=== PATIENT | female | born 1995 | race Caucasian/White ===

== ENCOUNTER 2021-01-28 18:48 | Emergency (ER) | payer BC, SELFPAY ==
[2021-01-28] VITALS (7 sets, daily range): BP systolic 113–142; BP diastolic 49–88; PULSE 101–143; RESP 16–20; TEMP 36.7; O2SAT 99–100
--- NOTE | ~2021-01-28 | XR_ITS ---
EXAMINATION: XR chest 2V EXAM DATE: 01/28/2021 20:33 INDICATION: Cough, Asthma Attack Today, Hx Of cardiac Murmur, chest pain. TECHNIQUE: Frontal and lateral projections of the chest obtained and reviewed. Comparison is made to prior examination from 06/30/2012. FINDINGS: The lungs are clear. There are no pleural effusions. The cardiomediastinal silhouette is within normal limits. There is no pneumothorax suspected. The bones and soft tissues are unremarkab le. IMPRESSION: No acute cardiopulmonary findings. Reviewed, dictated and finalized at location A. [employer]
[2021-01-28] MEDS: methylPREDNISolone SOD SUCC 125 MG VIAL IM (20:09)
[2021-01-28] MEDS: IPRATROPIUM BR 0.02% INH SOLN 0.5 MG/2.5 ML VIAL INHALATION (20:12)
[2021-01-28] MEDS: ALBUTEROL SULFATE NEB 2.5 MG/0.5 ML INH 5 MG INHALATION (20:12)
--- NOTE | 2021-01-28 21:07 | ED.GENADULT ---
HPI - General Adult General Chief complaint: Asthma Stated complaint: Asthma Time Seen by Provider: 01/28/21 19:53 Source: patient Mode of arrival: ambulatory Limitations: no limitations History of Present Illness HPI narrative: Patient presents with chief complaint of asthma exacerbation last night and today. She reports she has had some postnasal drainage and cough. She reports her primary care started her on a Z-Matt however her symptoms persist. She denies any fever, nausea, vomiting, dizziness. She reported that she feels difficulty taking a deep breath as if there is restriction. Related Data Allergies Allergy/AdvReac Type Severity Reaction Status Date / Time No Known Allergies Allergy Verified 01/28/21 19:59 Review of Systems Review of Systems: CONSTITUTIONAL: Denies fever, chills, or sweats. EYES: Denies visual changes, redness, or discharge. ENT: Denies rhinorrhea, congestion, sore throat, or otalgia. CARDIOVASCULAR: Denies chest pain, palpitations, or edema. RESPIRATORY: Reports cough and asthma exacerbation GASTROINTESTINAL: Denies abdominal pain, nausea, vomiting, or diarrhea. GENITOURINARY: Denies dysuria or hematuria. SKIN: Denies rash or itching. MUSCULOSKELETAL: Denies back pain, joint pain, or myalgia. NEUROLOGIC: Denies headache, numbness, dizziness, or weakness. PSYCHIATRIC: Denies anxiety or depression. Exam Narrative: GENERAL: Well-appearing, well-nourished, and in no acute distress. HEAD: Normocephalic, atraumatic. EYES: PERRLA and EOMI. ENT: Nares clear, no rhinorrhea or epistaxis. Mucous membranes moist. Oropharynx without tonsillar hypertrophy exudate or other lesions. Bilateral TMs pearly ace nonbulging NECK: Supple. No adenopathy or masses. ROM intact CHEST: Clear to auscultation. No respiratory distress. No wheezes rales or rhonchi. Tightness noted with barky cough when patient attempts deep breath. HEART: Regular rate and rhythm. No murmur heard. Normal peripheral pulses. EXTREMITIES: Normal range of motion. No edema. SKIN: Warm, dry, no rash. NEURO: No focal deficits. Alert and oriented x3. PSYCH: Normal mood and affect. Course Vital Signs Vital signs: Vital Signs Temperature 98.0 F 01/28/21 19:03 Pulse Rate 143 H 01/28/21 19:03 Respiratory Rate 18 01/28/21 19:03 Blood Pressure 142/86 H 01/28/21 19:03 Pulse Oximetry 100 01/28/21 19:03 Temperature 98.0 F 01/28/21 19:03 Pulse Rate 106 H 01/28/21 21:23 Respiratory Rate 18 01/28/21 21:23 Blood Pressure 125/81 01/28/21 21:23 Pulse Oximetry 100 01/28/21 21:23 Medical Decision Making MDM Narrative Medical decision making narrative: Patient refuses Covid test. Patient chest x-ray negative for pneumonia. Patient has been prescribed Tussionex and Medrol Dosepak. Patient has been instructed to continue her Z-Matt as prescribed by her primary care. Patient has been instructed to follow-up with her primary care provider and to return to emergency department if she develops any returning or emergent symptoms. Vital Signs Vital Signs: Vital Signs Temperature 98.0 F 01/28/21 19:03 Pulse Rate 143 H 01/28/21 19:03 Respiratory Rate 18 01/28/21 19:03 Blood Pressure 142/86 H 01/28/21 19:03 Pulse Oximetry 100 01/28/21 19:03 Temperature 98.0 F 01/28/21 19:03 Pulse Rate 106 H 01/28/21 21:23 Respiratory Rate 18 01/28/21 21:23 Blood Pressure 125/81 01/28/21 21:23 Pulse Oximetry 100 01/28/21 21:23 Imaging Data Radiologist's impression: ITS Impressions Chest X-Ray 01/28/21 20:35 IMPRESSION: No acute cardiopulmonary findings. Discharge Plan Discharge Clinical Impression: Asthma with acute exacerbation Qualifiers: Asthma severity: moderate Asthma persistence: unspecified Qualified Code(s): J45.901 - Unspecified asthma with (acute) exacerbation Patient Disposition: Home, Self-Care Condition: Improved Instructions: Antibiotic Form, Asthma (ED)
== END 2021-01-28 21:59 | disposition home or self-care (01) ==
PROVIDERS: Emergency Provider Emergency Medicine; PCP Family Medicine
DX: J45.901 Unspecified asthma with (acute) exacerbation (principal)
CPT/HCPCS: 71046; 94640; 96372; 99283; J2930